=== PATIENT | male | born 1960 | race Caucasian/White ===

== ENCOUNTER 2020-01-30 07:03 | Outpatient (REF) | payer OTHER, SELFPAY ==
[2020-01-30 12:00] LABS: C Reactive Protein 0.16 mg/dL (< or = 0.50); Rheumatoid Factor < 15.0 IU/mL (<15.0)
[2020-01-30 12:04] LABS: Erythrocyte Sedimentation Rate 5 MM/HR (0-15)
[2020-02-01 11:52] LABS: Cyclic Citrullinated Peptide <16 UNITS
== END 2020-01-30 07:04 | disposition home or self-care (01) ==
LOC: HO.WFDLDS 07:03
PROVIDERS: Visit Provider Family Medicine
DX: M25.50 Pain in unspecified joint (principal)
CPT/HCPCS: 36415; 85652; 86140; 86200; 86431

== ENCOUNTER 2020-02-19 09:57 | Outpatient (REF) | payer OTHER, SELFPAY ==
[2020-02-19 12:26] LABS: Cholesterol 112 mg/dL; HDL Cholesterol 40 mg/dL; LDL Cholesterol Calculated 59 mg/dl; Triglycerides 67 mg/dL
== END 2020-02-19 09:58 | disposition home or self-care (01) ==
LOC: HO.WFDLDS 09:57
PROVIDERS: Visit Provider Family Medicine
DX: Z00.00 Encounter for general adult medical examination without abnormal findings (principal); E78.5 Hyperlipidemia, unspecified
CPT/HCPCS: 80061

== ENCOUNTER 2020-09-05 07:03 | Outpatient (REF) | payer OTHER, SELFPAY ==
[2020-09-05 10:48] LABS: Cholesterol 115 mg/dL; HDL Cholesterol 44 mg/dL; LDL Cholesterol Calculated 60 mg/dl; Triglycerides 58 mg/dL
== END 2020-09-05 07:04 | disposition home or self-care (01) ==
LOC: HO.WFDLDS 07:03
PROVIDERS: Visit Provider Family Medicine
DX: Z00.00 Encounter for general adult medical examination without abnormal findings (principal); E78.5 Hyperlipidemia, unspecified
CPT/HCPCS: 36415; 80061

== ENCOUNTER 2021-03-06 07:09 | Outpatient (REF) | payer OTHER, SELFPAY ==
[2021-03-06 11:15] LABS: Alanine Aminotransferase 21 U/L (0-40); Albumin Level 4.3 g/dL (3.5-5.0); Alkaline Phosphatase 80 U/L (39-117); Anion Gap 11 (12-20); Aspartate Amino Transferase 18 U/L (5-37); Bilirubin Total 1.1 mg/dL (0.0-1.0); Blood Urea Nitrogen 11 mg/dL (9-16); Calcium 9.4 mg/dL (8.4-10.2); Carbon Dioxide 27 mmol/L (22-29); Chloride 106 mmol/L (96-108); Cholesterol 130 mg/dL; Estimated Glomerular Filt Rate > 60; Glucose Fasting 106 mg/dL (60-99); HDL Cholesterol 42 mg/dL; Potassium 4.4 mmol/L (3.3-5.1); Sodium 140 mmol/L (135-145); Total Protein 6.7 g/dL (6.5-8.0)
[2021-03-06 11:17] LABS: LDL Cholesterol Calculated 68 mg/dl; Triglycerides 101 mg/dL
== END 2021-03-06 07:10 | disposition home or self-care (01) ==
LOC: HO.WFDLDS 07:09
PROVIDERS: Visit Provider Family Medicine
DX: Z00.00 Encounter for general adult medical examination without abnormal findings (principal)
CPT/HCPCS: 36415; 80053; 80061

== ENCOUNTER 2021-05-30 07:14 | Outpatient (REF) | payer OTHER, SELFPAY ==
[2021-05-30 11:40] LABS: MANUAL DIFF FLAG NO
[2021-05-30 11:42] LABS: Basophils Percent Auto 0.8 % (0-2); Eosinophils Absolute Auto 0.2 X10*3/uL (0.0-0.4); Eosinophils Percent Auto 3.7 % (0-4); Hematocrit 41.4 % (42.0-52.0); Hemoglobin 13.6 g/dl (14.0-18.0); Imm Gran Abs Auto 0.01 X10*3/uL (0.00-0.03); Imm Gran Pct Auto 0.2 % (0.0-0.4); Lymphocytes Absolute Auto 1.7 X10*3/uL (1.2-4.9); Lymphocytes Percent Auto 34.7 % (20-40); Mean Corpuscular HGB Conc 32.9 g/dl (31.0-36.0); Mean Corpuscular Hemoglobin 32.4 pg (27.0-33.0); Mean Corpuscular Volume 98.6 fL (80.0-98.0); Monocytes Absolute Auto 0.6 X10*3/uL (0.1-1.2); Monocytes Percent Auto 11.2 % (2-11); Neutrophils Absolute Auto 2.4 x10*3/uL (2.0-8.3); Neutrophils Percent Auto 49.4 % (45-73); Platelet Count 201 X10*3/uL (160-400); Red Cell Distribution Width 12.3 % (11.0-16.0); White Blood Count 4.9 X10*3/uL (4.8-10.8)
[2021-05-30 11:59] LABS: Estimated Average Glucose 105 mg/dL; Hemoglobin A1c % 5.3 %
[2021-05-30 12:10] LABS: Alanine Aminotransferase 23 U/L (0-40); Albumin Level 4.2 g/dL (3.5-5.0); Alkaline Phosphatase 80 U/L (39-117); Anion Gap 14 (12-20); Aspartate Amino Transferase 18 U/L (5-37); Bilirubin Total 1.3 mg/dL (0.0-1.0); Blood Urea Nitrogen 11 mg/dL (9-16); Calcium 9.5 mg/dL (8.4-10.2); Carbon Dioxide 28 mmol/L (22-29); Chloride 105 mmol/L (96-108); Estimated Glomerular Filt Rate > 60; Glucose Fasting 107 mg/dL (60-99); Iron 128 mcg/dL (45-160); Percent Iron Saturation 36 % (15-50); Potassium 4.5 mmol/L (3.3-5.1); Sodium 142 mmol/L (135-145); Total Iron Binding Capacity 355 mcg/dL (228-428); Total Protein 6.9 g/dL (6.5-8.0); Unsaturated Iron Binding 227 ug/dL
[2021-05-30 12:15] LABS: Prostate Specific Antigen Scr 0.15 ng/mL (<0.05-4.0); TSH reflex Free T4 1.94 uIU/mL (0.32-4.0)
[2021-06-06 22:06] LABS: Testosterone, Free 74.3 pg/mL (35.0-155.0); Testosterone, Total 630 ng/dL (250-1100)
== END 2021-05-30 07:15 | disposition home or self-care (01) ==
LOC: HO.WFDLDS 07:14
PROVIDERS: Visit Provider Family Medicine
DX: Z00.00 Encounter for general adult medical examination without abnormal findings (principal); N52.9 Male erectile dysfunction, unspecified; R73.01 Impaired fasting glucose; Z12.5 Encounter for screening for malignant neoplasm of prostate
CPT/HCPCS: 36415; 80053; 83036; 83540; 84153; 84402; 84403; 84443; 85025

== ENCOUNTER 2021-08-28 07:04 | Outpatient (REF) | payer OTHER, SELFPAY ==
[2021-08-28 11:33] LABS: MANUAL DIFF FLAG NO
[2021-08-28 11:49] LABS: Basophils Absolute Auto 0.1 X10*3/uL (0.0-0.2); Basophils Percent Auto 1.2 % (0-2); Eosinophils Absolute Auto 0.2 X10*3/uL (0.0-0.4); Eosinophils Percent Auto 3.7 % (0-4); Hematocrit 41.5 % (42.0-52.0); Hemoglobin 13.9 g/dl (14.0-18.0); Imm Gran Abs Auto 0.01 X10*3/uL (0.00-0.03); Imm Gran Pct Auto 0.2 % (0.0-0.4); Immature Retic Fraction 5.4 % (2.3-13.4); Lymphocytes Absolute Auto 1.5 X10*3/uL (1.2-4.9); Lymphocytes Percent Auto 34.2 % (20-40); Mean Corpuscular HGB Conc 33.5 g/dl (31.0-36.0); Mean Corpuscular Hemoglobin 32.5 pg (27.0-33.0); Mean Platelet Volume 11.9 fL (9.4-12.4); Monocytes Absolute Auto 0.5 X10*3/uL (0.1-1.2); Monocytes Percent Auto 11.5 % (2-11); Neutrophils Absolute Auto 2.1 x10*3/uL (2.0-8.3); Neutrophils Percent Auto 49.2 % (45-73); Platelet Count 207 X10*3/uL (160-400); Red Blood Count 4.28 X10*6/uL (4.60-5.80); Retic HGB Equivalent 36.8 pg (30.0-35.0); Reticulocyte Percent 1.1 % (0.5-1.8); Reticulocytes Absolute 0.049 X10*6/uL (0.026-0.095); White Blood Count 4.3 X10*3/uL (4.8-10.8)
[2021-08-28 12:57] LABS: Folate 12.3 ng/mL (> or = 4.0); Vitamin B12 159 pg/mL (200-900)
== END 2021-08-28 07:05 | disposition home or self-care (01) ==
LOC: HO.WFDLDS 07:04
PROVIDERS: PCP Family Medicine; Visit Provider Family Medicine
DX: D53.9 Nutritional anemia, unspecified (principal)
CPT/HCPCS: 36415; 82607; 82746; 85025; 85045

== ENCOUNTER 2021-10-17 08:39 | Outpatient (REF) | payer OTHER, SELFPAY ==
[2021-10-17 11:15] LABS: MANUAL DIFF FLAG NO
[2021-10-17 11:36] LABS: Basophils Percent Auto 0.8 % (0-2); Eosinophils Absolute Auto 0.1 X10*3/uL (0.0-0.4); Eosinophils Percent Auto 2.7 % (0-4); Hematocrit 39.1 % (42.0-52.0); Hemoglobin 13.6 g/dl (14.0-18.0); Imm Gran Abs Auto 0.01 X10*3/uL (0.00-0.03); Imm Gran Pct Auto 0.2 % (0.0-0.4); Lymphocytes Absolute Auto 1.6 X10*3/uL (1.2-4.9); Mean Corpuscular HGB Conc 34.8 g/dl (31.0-36.0); Mean Corpuscular Hemoglobin 32.8 pg (27.0-33.0); Mean Corpuscular Volume 94.2 fL (80.0-98.0); Mean Platelet Volume 11.9 fL (9.4-12.4); Monocytes Absolute Auto 0.4 X10*3/uL (0.1-1.2); Neutrophils Absolute Auto 2.5 x10*3/uL (2.0-8.3); Neutrophils Percent Auto 53.3 % (45-73); Platelet Count 206 X10*3/uL (160-400); Red Blood Count 4.15 X10*6/uL (4.60-5.80); Red Cell Distribution Width 11.9 % (11.0-16.0); White Blood Count 4.8 X10*3/uL (4.8-10.8)
[2021-10-17 11:39] LABS: Estimated Average Glucose 105 mg/dL; Hemoglobin A1c % 5.3 %
[2021-10-17 11:51] LABS: Cholesterol 131 mg/dL; HDL Cholesterol 41 mg/dL; LDL Cholesterol Calculated 78 mg/dl; Triglycerides 60 mg/dL
[2021-10-17 12:16] LABS: Folate 8.5 ng/mL (> or = 4.0); Vitamin B12 499 pg/mL (200-900)
== END 2021-10-17 08:40 | disposition home or self-care (01) ==
LOC: HO.WFDLDS 08:39
PROVIDERS: Visit Provider Family Medicine
DX: Z00.00 Encounter for general adult medical examination without abnormal findings (principal); D53.9 Nutritional anemia, unspecified; E78.5 Hyperlipidemia, unspecified; R73.01 Impaired fasting glucose; E53.8 Deficiency of other specified B group vitamins
CPT/HCPCS: 36415; 80061; 82607; 82746; 83036; 85025

== ENCOUNTER 2022-03-05 07:37 | Outpatient (REF) | payer OTHER, SELFPAY ==
[2022-03-05 11:23] LABS: MANUAL DIFF FLAG NO
[2022-03-05 11:41] LABS: Basophils Absolute Auto 0.1 X10*3/uL (0.0-0.2); Eosinophils Absolute Auto 0.2 X10*3/uL (0.0-0.4); Eosinophils Percent Auto 3.2 % (0-4); Hematocrit 43.8 % (42.0-52.0); Hemoglobin 14.3 g/dl (14.0-18.0); Imm Gran Abs Auto 0.01 X10*3/uL (0.00-0.03); Imm Gran Pct Auto 0.2 % (0.0-0.4); Lymphocytes Absolute Auto 1.9 X10*3/uL (1.2-4.9); Lymphocytes Percent Auto 31.6 % (20-40); Mean Corpuscular HGB Conc 32.6 g/dl (31.0-36.0); Mean Corpuscular Hemoglobin 31.1 pg (27.0-33.0); Mean Corpuscular Volume 95.2 fL (80.0-98.0); Mean Platelet Volume 11.3 fL (9.4-12.4); Monocytes Absolute Auto 0.6 X10*3/uL (0.1-1.2); Monocytes Percent Auto 9.3 % (2-11); Neutrophils Absolute Auto 3.3 x10*3/uL (2.0-8.3); Neutrophils Percent Auto 54.7 % (45-73); Platelet Count 223 X10*3/uL (160-400); Red Cell Distribution Width 11.9 % (11.0-16.0); White Blood Count 5.9 X10*3/uL (4.8-10.8)
== END 2022-03-05 07:38 | disposition home or self-care (01) ==
LOC: HO.WFDLDS 07:37
PROVIDERS: Visit Provider Family Medicine
DX: Z00.00 Encounter for general adult medical examination without abnormal findings (principal); D53.9 Nutritional anemia, unspecified
CPT/HCPCS: 36415; 85025

== ENCOUNTER 2022-05-29 07:24 | Outpatient (REF) | payer OTHER, SELFPAY ==
[2022-05-29 11:21] LABS: MANUAL DIFF FLAG NO
[2022-05-29 11:48] LABS: Appearance Urine Clear; Color Urine Yellow; Glucose Urine UA Negative (Negative); Leukocyte Esterase Urine Negative (Negative); Nitrite Urine Negative (Negative); PH 5.5 (5.0-9.0); Specific Gravity - Urine 1.015 (1.005-1.025); Urine Blood Negative (Negative); Urine Ketones Negative (Negative); Urine Protein Negative (Neg-Trace)
[2022-05-29 12:02] LABS: Basophils Absolute Auto 0.1 X10*3/uL (0.0-0.2); Basophils Percent Auto 1.1 % (0-2); Eosinophils Absolute Auto 0.2 X10*3/uL (0.0-0.4); Eosinophils Percent Auto 3.6 % (0-4); Hematocrit 44.6 % (42.0-52.0); Hemoglobin 14.7 g/dl (14.0-18.0); Imm Gran Abs Auto 0.01 X10*3/uL (0.00-0.03); Imm Gran Pct Auto 0.2 % (0.0-0.4); Lymphocytes Absolute Auto 1.8 X10*3/uL (1.2-4.9); Lymphocytes Percent Auto 32.2 % (20-40); Mean Corpuscular Hemoglobin 32.2 pg (27.0-33.0); Mean Corpuscular Volume 97.6 fL (80.0-98.0); Mean Platelet Volume 11.5 fL (9.4-12.4); Monocytes Absolute Auto 0.6 X10*3/uL (0.1-1.2); Monocytes Percent Auto 11.2 % (2-11); Neutrophils Absolute Auto 2.9 x10*3/uL (2.0-8.3); Neutrophils Percent Auto 51.7 % (45-73); Platelet Count 235 X10*3/uL (160-400); Red Blood Count 4.57 X10*6/uL (4.60-5.80); Red Cell Distribution Width 12.5 % (11.0-16.0); White Blood Count 5.5 X10*3/uL (4.8-10.8)
[2022-05-29 13:00] LABS: Alanine Aminotransferase 22 U/L (0-40); Albumin Level 4.2 g/dL (3.5-5.0); Alkaline Phosphatase 85 U/L (39-117); Anion Gap 12 (12-20); Aspartate Amino Transferase 19 U/L (5-37); Bilirubin Total 1.2 mg/dL (0.0-1.0); Blood Urea Nitrogen 10 mg/dL (9-16); Calcium 9.1 mg/dL (8.4-10.2); Carbon Dioxide 27 mmol/L (22-29); Chloride 107 mmol/L (96-108); Cholesterol 125 mg/dL; Estimated Glomerular Filt Rate > 60; Glucose Fasting 101 mg/dL (60-99); HDL Cholesterol 39 mg/dL; LDL Cholesterol Calculated 72 mg/dl; Potassium 4.4 mmol/L (3.3-5.1); Sodium 142 mmol/L (135-145); Total Protein 6.6 g/dL (6.5-8.0); Triglycerides 71 mg/dL
[2022-05-29 13:04] LABS: Creatinine Urine 78.05 mg/dL; Microalbum/Creatinine Ratio Ur 7.6 ug/mg cr
[2022-05-29 13:14] LABS: Prostate Specific Antigen Scr 0.18 ng/mL (<0.05-4.0); TSH reflex Free T4 1.48 uIU/mL (0.32-4.0); Vitamin B12 616 pg/mL (200-900)
== END 2022-05-29 07:25 | disposition home or self-care (01) ==
LOC: HO.WFDLDS 07:24
PROVIDERS: Visit Provider Family Medicine
DX: Z00.00 Encounter for general adult medical examination without abnormal findings (principal); E53.8 Deficiency of other specified B group vitamins; I10 Essential (primary) hypertension; Z12.5 Encounter for screening for malignant neoplasm of prostate
CPT/HCPCS: 36415; 80053; 80061; 81003; 82043; 82607; 82746; 84153; 84443; 85025

== ENCOUNTER 2022-06-11 07:08 | Outpatient (REF) | payer OTHER, SELFPAY ==
[2022-06-11 11:59] LABS: Anion Gap 11 (12-20); Blood Urea Nitrogen 17 mg/dL (9-16); Carbon Dioxide 25 mmol/L (22-29); Chloride 109 mmol/L (96-108); Estimated Glomerular Filt Rate > 60; Glucose Random 102 mg/dL (60-115); Potassium 4.3 mmol/L (3.3-5.1); Sodium 141 mmol/L (135-145)
[2022-06-17 21:14] LABS: Testosterone, Free 73.3 pg/mL (35.0-155.0); Testosterone, Total 516 ng/dL (250-1100)
== END 2022-06-11 07:09 | disposition home or self-care (01) ==
LOC: HO.WFDLDS 07:08
PROVIDERS: Visit Provider Family Medicine
DX: Z00.00 Encounter for general adult medical examination without abnormal findings (principal); N52.9 Male erectile dysfunction, unspecified
CPT/HCPCS: 36415; 80048; 84402; 84403

== ENCOUNTER 2022-09-04 07:01 | Outpatient (REF) | payer OTHER, SELFPAY | END 2022-09-04 07:02 | disposition home or self-care (01) | LOC: HO.WFDLDS 07:01 | PROVIDERS: Visit Provider Family Medicine | DX: Z00.00 Encounter for general adult medical examination without abnormal findings (principal); R73.01 Impaired fasting glucose; E78.5 Hyperlipidemia, unspecified | CPT/HCPCS: 36415; 80053; 80061; 83036 ==

== ENCOUNTER 2022-09-11 08:32 | Outpatient (AMB) | payer BC, SELFPAY ==
[2022-09-11 08:45] VITALS: BP 122/68; PULSE 61; RESP 15; TEMP 36.5; O2SAT 98; BMI 29.1
--- NOTE | 2022-09-11 08:45 | A.OFFPC_ITS ---
Vital Signs 09/11/22 08:45 Height 5 ft 2 in Weight 159 lb BMI 29.1 BP 122/68 Blood Pressure Location Rt brachial Position Sitting Respiration 15 Pulse 61 Pulse Source Pulse Oximeter Temp 97.7 F Temp Source Temporal Artery Scan Pulse Oximetry (%) 98 Oxygen Delivery Method Room Air Intake Visit Reasons: f/u elevated fasting glucose and hyperlipidemia Intake Note: Patient is here today to follow up with labs. Medical Staff Services Coordinator Required: No Accompanied by: Self / Same As Patient Allergies Seasonale Adverse Reaction (Severe, Uncoded 09/11/22 08:50) Watery Eye Medication List - Last Reconciled 09/11/22 by Best Clemons MD atorvastatin 10 mg PO DAILY 90 days coenzyme Q10 (CoQ-10) 100 mg PO DAILY mecobalamin (vitamin B12) 1,000 mcg sublingual DAILY 90 days Tobacco use date assessed: 09/11/22 Dental Screening Dental Screen Date: 09/11/22 Did you have a dental visit in the last 12 months?: Yes Did you have a dental problem in the last 6 months where you did not have access to dental care?: No Was dental information given to patient?: Patient has dentist HPI f/u elevated fasting glucose and hyperlipidemia HPI Details 62 y/o male presents to f/u elevated fasting glucose and hyperlipidemia. Labs were drawn 09/04/22. Reviewed labs with pt. A1c 5.3%. Triglycerides 95. TC 138. LDL 79. HDL 40. Pt had complaints of erectile dysfunction. He declines referral to Urology today. [facility] Surgical History No pertinent past surgical history Family History (Updated 09/11/22 @ 09:07 by Bharti Novak) Other Substance use disorder Social History Housing: House Patient Tobacco Use Status: Never used Tobacco e-Cigarette/Vaping Use: Never Used Second Hand Smoke Exposure: No service: No Current occupational status: employed Current occupation: Portable toilet cleaning Current occupational exposures/hazards: No Cognitive needs: No Hearing needs: No Vision needs: Yes Questionnaire PHQ-9 Over the last 2 weeks, how often have you been bothered by any of the following problems? 1. Little interest or pleasure in doing things: not at all 2. Feeling down, depressed, or hopeless: not at all 3. Trouble falling or staying asleep, or sleeping too much: not at all 4. Feeling tired or having little energy: not at all 5. Poor appetite or overeating: not at all 6. Feeling bad about yourself - or that you are a failure or have let yourself or your family down: not at all 7. Trouble concentrating on things, such as reading the newspaper or watching television: not at all 8. Moving or speaking so slowly that other people could have noticed. Or the opposite - being so fidgety or restless that you have been moving around a lot more than usual: not at all 9. Thoughts that you would be better off or of hurting yourself in some way: not at all Total score: 0 Depression Screening Interpretation: Negative 95902 - PHQ-9 Billing: Yes Source: Developed by Drs. Zay Chow, Shirley Chaidez, Octavio Sam and colleagues, with an educational alexandru from [employer] Thrive Questionnaire Date Thrive assessed: 09/11/22 I am a: Patient What is your living situation today?: I have a steady place to live Within the past 12 months, did the food you bought not last and you didn't have the money to get more?: Never true Within the past 12 months, did you worry whether your food would run out before you got money to buy more?: Never true Do you have trouble paying for medicines?: No Do you have trouble getting transportation to medical appointments?: No Do you have trouble paying your heating and electricity bill?: No Do you have trouble taking care of your child, family member or friend?: No Do you have trouble with day-to-day activities such as bathing, preparing meals, shopping, managing finances, etc.?: No Are you currently unemployed and looking for a job?: No Are you interested in more education?: No Currently or been in a relationship where the following occur: no concerns reported AUDIT C Alcohol Use Questionnaire (AUDIT-C) 1. How often do you have a drink containing alcohol?: Never 3. How often do you have six or more drinks on one occasion?: Never Total Score: 0 ROSIO-7 AMB Questionnaire ROSIO-7 Date ROSIO - 7 assessed: 09/11/22 Feeling nervous, anxious, or on edge: 0 = Not at all Not being able to stop or control worryin = Not at all Worrying too much about different things: 0 = Not at all Trouble relaxin = Not at all Being so restless that it is hard to sit still: 0 = Not at all Becoming easily annoyed or irritable: 0 = Not at all Feeling afraid as if something awful might happen: 0 = Not at all Total ROSIO-7 score (0-4 normal; 5-9 mild; 10-14 moderate; 15-21 severe): 0 Source: Developed by Drs. Zay Chow, Shirley Chaidez, Octavio Sam and colleagues, with an educational alexandru from [employer] ROSIO-7 Assessment Billing ROSIO-7 Assessment Tool: ROSIO-7 Assessment 59614 Review of Systems Const Denies chills, Denies fatigue, Denies fever(s), Denies headache(s) and Denies weakness ENT Denies dizziness and Denies headache(s) Card Denies chest pain, Denies lightheadedness, Denies dyspnea and Denies other (Palpitations) Resp Denies cough, Denies dyspnea, Denies wheezing and Denies other ( shortness of breath) Musc Denies numbness and Denies tingling Neuro Denies dizziness, Denies headache(s), Denies numbness, Denies tingling, Denies paresthesias and Denies weakness Psych Denies anxiety and Denies depression Endo Denies fatigue Aller/Immun Denies wheezing Physical exam (Primary Care) Vital Signs: Last Vital Signs Temp 97.7 F 09/11/22 08:45 Pulse 61 09/11/22 08:45 Resp 15 09/11/22 08:45 BP 122/68 09/11/22 08:45 Pulse Ox 98 09/11/22 08:45 Oxygen Delivery Method Room Air 09/11/22 08:45 BMI result Body Mass Index 29.1 Tobacco/Smoking Status: Tobacco use Status Tobacco use date assessed 09/11/22 09/11/22 08:52 Patient Tobacco Use Status Never used Tobacco 09/11/22 08:52 e-Cigarette/Vaping Use Never Used 09/11/22 08:52 PHQ-9: PHQ-9 Score PHQ-9: Total score 0 09/11/22 09:12 Depression Screening Interpretation: Negative Thrive Assessment: Date of Thrive Assessment Date Thrive assessed 09/11/22 09/11/22 09:01 Currently or been in a relationship where the following occur: no concerns reported Const General: no acute distress and well developed Nutritional Appearance: well nourished Orientation/consciousness: patient oriented x3 HENMT Head: Yes normocephalic and Yes atraumatic Eyes General: appearance normal, both eyes and all related structures Pupils: Equal, round and reactive pupils present EOM: EOMs intact bilaterally Resp Effort & Inspection: normal respiratory effort Auscultation: clear to auscultation bilaterally Cardio Rate: regular rate Rhythm: regular rhythm Heart sounds: S1 normal heart sound present, S2 normal heart sound present, no gallops, no murmurs and no rubs Neuro General: patient oriented x3 and gait normal Cranial nerves: Yes Equal, round and reactive pupils present Psych Affect: normal affect Assessment and Plan Assessment & Plan (1) Elevated fasting glucose: Code(s): R73.01 - Impaired fasting glucose Plan: A1c steady at 5.3%. He has some insulin resistance Encouraged a diet lower in sugars and starches (2) Hyperlipidemia: Code(s): E78.5 - Hyperlipidemia, unspecified Plan: Lipids are controlled with atorvastatin. HDL was mildly low previously but now within normal limits. Encouraged additional exercise (3) Strain of left biceps tendon: Code(s): S46.212A - Strain of muscle, fascia and tendon of other parts of biceps, left arm, initial encounter Plan: Mild discomfort at left biceps tendon. He can use ice heat and NSAIDs He will let me know if this worsens and would refer him for physical therapy (4) Erectile dysfunction: Code(s): N52.9 - Male erectile dysfunction, unspecified Plan: Testosterone levels within normal limits Offered referral to urology or trial of medications but patient declines for now. He will let me know if he would like to readdress this issue Orders: Orders Vitamin B12 and Folate Today D53.9 - Nutritional anemia, unspecified, E53.8 - Deficiency of other specified B group vitamins Comprehensive [place]. Panel Fast Today Z00.00 - Encounter for general adult medical examination without abnormal findings IRON PROFILE Today D53.9 - Nutritional anemia, unspecified Lipid Panel Today Z00.00 - Encounter for general adult medical examination without abnormal findings Prostate Specific Antigen Scr Today Z12.5 - Encounter for screening for malignant neoplasm of prostate TSH reflex Free T4 Today Z00.00 - Encounter for general adult medical examination without abnormal findings Microalbumin, Random (w Creat) Today I10 - Essential (primary) hypertension Complete Blood Count Auto Diff Today Z00.00 - Encounter for general adult medical examination without abnormal findings UA and rflx microscopic Today Z00.00 - Encounter for general adult medical examination without abnormal findings Coding Level of Care Code Est Pt Level 4 (15615) Diagnoses Elevated fasting glucose R73.01 Hyperlipidemia E78.5 Strain of left biceps tendon S46.212A Erectile dysfunction N52.9 Additional Codes ROSIO-7 Assessment Billing - ROSIO-7 Assessment Tool: ROSIO-7 Assessment 43867 ([id number])
== END 2022-09-11 09:28 | disposition home or self-care (01) ==
PROVIDERS: Visit Provider Family Medicine
DX: R73.01 Impaired fasting glucose (principal); E78.5 Hyperlipidemia, unspecified; S46.212A Strain of muscle, fascia and tendon of other parts of biceps, left arm, initial encounter; N52.9 Male erectile dysfunction, unspecified
CPT/HCPCS: 99214

== ENCOUNTER 2023-07-29 10:02 | Outpatient (REF) | payer OTHER, SELFPAY ==
[2023-07-29 11:22] LABS: MANUAL DIFF FLAG NO
[2023-07-29 11:30] LABS: Basophils Absolute Auto 0.1 X10*3/uL (0.0-0.2); Basophils Percent Auto 0.9 % (0-2); Eosinophils Absolute Auto 0.3 X10*3/uL (0.0-0.4); Hematocrit 43.1 % (42.0-52.0); Imm Gran Abs Auto 0.02 X10*3/uL (0.00-0.03); Imm Gran Pct Auto 0.3 % (0.0-0.4); Lymphocytes Percent Auto 29.1 % (20-40); Mean Corpuscular HGB Conc 34.8 g/dl (31.0-36.0); Mean Corpuscular Hemoglobin 32.3 pg (27.0-33.0); Mean Corpuscular Volume 92.9 fL (80.0-98.0); Mean Platelet Volume 11.3 fL (9.4-12.4); Monocytes Absolute Auto 0.6 X10*3/uL (0.1-1.2); Monocytes Percent Auto 9.3 % (2-11); Neutrophils Absolute Auto 3.8 x10*3/uL (2.0-8.3); Neutrophils Percent Auto 56.4 % (45-73); Platelet Count 217 X10*3/uL (160-400); Red Blood Count 4.64 X10*6/uL (4.60-5.80); Red Cell Distribution Width 12.5 % (11.0-16.0); White Blood Count 6.7 X10*3/uL (4.8-10.8)
[2023-07-29 11:43] LABS: Appearance Urine Clear; Color Urine Yellow; Glucose Urine UA Negative (Negative); Leukocyte Esterase Urine Negative (Negative); Nitrite Urine Negative (Negative); Specific Gravity - Urine 1.015 (1.005-1.025); Urine Blood Negative (Negative); Urine Ketones Negative (Negative); Urine Protein Negative (Neg-Trace)
[2023-07-29 12:24] LABS: Alanine Aminotransferase 39 U/L (0-40); Albumin Level 4.2 g/dL (3.5-5.0); Alkaline Phosphatase 86 U/L (39-117); Anion Gap 16 (12-20); Aspartate Amino Transferase 25 U/L (5-37); Blood Urea Nitrogen 11 mg/dL (9-16); Calcium 9.4 mg/dL (8.4-10.2); Carbon Dioxide 23 mmol/L (22-29); Chloride 106 mmol/L (96-108); Cholesterol 144 mg/dL (<200); Estimated Glomerular Filt Rate > 60; Glucose Fasting 96 mg/dL (60-99); HDL Cholesterol 39 mg/dL (>40); Iron 96 mcg/dL (45-160); LDL Cholesterol Calculated 72 mg/dL (<100); Percent Iron Saturation 33 % (15-50); Sodium 141 mmol/L (135-145); Total Iron Binding Capacity 292 mcg/dL (228-428); Total Protein 7.1 g/dL (6.5-8.0); Triglycerides 169 mg/dL (<150); Unsaturated Iron Binding 196 ug/dL
[2023-07-29 12:41] LABS: TSH reflex Free T4 1.33 uIU/mL (0.32-4.0)
[2023-07-29 12:44] LABS: Folate 4.1 ng/mL (> or = 4.0); Prostate Specific Antigen Scr 0.27 ng/mL (<0.05-4.0); Vitamin B12 1201 pg/mL (200-900)
[2023-07-29 12:46] LABS: Creatinine Urine 173.51 mg/dL; Microalbum/Creatinine Ratio Ur 6.9 ug/mg cr (<30)
== END 2023-07-29 10:03 | disposition home or self-care (01) ==
LOC: HO.WFDLDS 10:02
PROVIDERS: Visit Provider Family Medicine
DX: Z00.00 Encounter for general adult medical examination without abnormal findings (principal); Z12.5 Encounter for screening for malignant neoplasm of prostate; E53.8 Deficiency of other specified B group vitamins; D53.9 Nutritional anemia, unspecified; I10 Essential (primary) hypertension
CPT/HCPCS: 36415; 80053; 80061; 81003; 82043; 82570; 82607; 82746; 83540; 84153; 84443; 85025

== ENCOUNTER 2023-08-02 13:35 | Outpatient (AMB) | payer OTHER, SELFPAY ==
--- NOTE | 2023-08-02 13:42 | A.OFFPC_ITS ---
Vital Signs 08/02/23 13:44 Height 5 ft 2 in Weight 168 lb 2 oz BMI 30.7 BP 124/66 Blood Pressure Location Lt brachial Position Sitting Pulse 86 Pulse Source Pulse Oximeter Pulse Oximetry (%) 96 Oxygen Delivery Method Room Air Intake Visit Reasons: CPE with f/u labs and health maintenance Intake Note: Patient is here for physical today. Allergies Seasonale Adverse Reaction (Severe, Uncoded 08/02/23 13:49) Watery Eye Tobacco use date assessed: 08/02/23 Fall risk assessment: No Falls in past year Last assessed Fall Risk: 08/02/23 Dental Screening Dental Screen Date: 08/02/23 Did you have a dental visit in the last 12 months?: Yes Did you have a dental problem in the last 6 months where you did not have access to dental care?: No Was dental information given to patient?: Patient has dentist HPI CPE with f/u labs and health maintenance HPI Details 63 y/o male presents for a CPE with f/u labs and health maintenance. Labs were drawn 07/29/23. Reviewed labs with pt. Triglycerides 169. TC 144. LDL 72. HDL low at 39. He is on artovastatin 10mg daily. Has not had a colonoscopy yet. Last cologuard test was in May, which was negative. HPI Comments History of Present Illness Details Documentation assistance for Best Clemons MD, was provided by Anatoliy Guerrero, Air Valve Repairer on 08/02/2023 at 2:21 PM EST. I, Dr. Clemons, have read, observed, and verified documentation. [facility] Surgical History No pertinent past surgical history Family History Other Substance use disorder Social History Housing: House Patient Tobacco Use Status: Never used Tobacco e-Cigarette/Vaping Use: Never Used Second Hand Smoke Exposure: No service: No Current occupational status: employed Current occupation: Portable toilet cleaning Current occupational exposures/hazards: No Cognitive needs: No Hearing needs: No Vision needs: Yes Questionnaire PHQ-9 Over the last 2 weeks, how often have you been bothered by any of the following problems? 1. Little interest or pleasure in doing things: not at all 2. Feeling down, depressed, or hopeless: not at all 3. Trouble falling or staying asleep, or sleeping too much: not at all 4. Feeling tired or having little energy: not at all 5. Poor appetite or overeating: not at all 6. Feeling bad about yourself - or that you are a failure or have let yourself or your family down: not at all 7. Trouble concentrating on things, such as reading the newspaper or watching television: not at all 8. Moving or speaking so slowly that other people could have noticed. Or the opposite - being so fidgety or restless that you have been moving around a lot more than usual: not at all 9. Thoughts that you would be better off or of hurting yourself in some way: not at all Total score: 0 Depression Screening Interpretation: Negative Depression Screening Done: Yes 75709 - PHQ-9 Billing: Yes Source: Developed by Drs. Zay Chow, Shirley Chaidez, Octavio Sam and colleagues, with an educational alexandru from [employer]. Thrive Questionnaire Date Thrive assessed: 08/02/23 I am a: Patient What is your living situation today?: I have a steady place to live Within the past 12 months, did the food you bought not last and you didn't have the money to get more?: Never true Within the past 12 months, did you worry whether your food would run out before you got money to buy more?: Never true Do you have trouble paying for medicines?: No Do you have trouble getting transportation to medical appointments?: No Do you have trouble paying your heating and electricity bill?: No Do you have trouble taking care of your child, family member or friend?: No Do you have trouble with day-to-day activities such as bathing, preparing meals, shopping, managing finances, etc.?: No Are you currently unemployed and looking for a job?: No Are you interested in more education?: No THRIVE Score: 0 AUDIT C Alcohol Use Questionnaire (AUDIT-C) 1. How often do you have a drink containing alcohol?: Never 3. How often do you have six or more drinks on one occasion?: Never Total Score: 0 ROSIO-7 AMB Questionnaire ROSIO-7 Date ROSIO - 7 assessed: 09/11/22 Source: Developed by Drs. Zay Chow, Shirley Chaidez, Octavio Sam and colleagues, with an educational alexandru from [employer]. Review of Systems Const Denies chills, Denies fatigue, Denies fever(s), Denies headache(s) and Denies weakness Eyes Denies change in vision ENT Denies dizziness, Denies headache(s), Denies hearing loss, Denies nasal congestion, Denies sinus pain, Denies sinus pressure and Denies sore throat Card Denies chest pain, Denies lightheadedness, Denies dyspnea and Denies other (palpitations) Resp Denies cough, Denies dyspnea and Denies wheezing GI Denies abdominal pain, Denies melena, Denies hematochezia, Denies change in bowel habits, Denies dyspepsia and Denies nausea Denies hematuria and Denies dysuria Musc Denies abnormal gait, Denies myalgias, Denies arthralgias, Denies numbness and Denies tingling Skin/Breast Denies rash, Denies unusual bruising and Denies wounds Neuro Denies abnormal gait, Denies dizziness, Denies headache(s), Denies memory loss, Denies numbness, Denies Sensory deficit (Neuro), Denies tingling and Denies weakness Psych Denies anxiety, Denies depression and Denies memory loss Endo Denies cold intolerance, Denies fatigue, Denies heat intolerance, Denies polydipsia and Denies polyuria Juan Alberto/Lymph Denies easy bleeding and Denies easy bruising Aller/Immun Denies wheezing Physical exam (Primary Care) Vital Signs: Last Vital Signs Pulse 86 08/02/23 13:44 BP 124/66 08/02/23 13:44 Pulse Ox 96 08/02/23 13:44 Oxygen Delivery Method Room Air 08/02/23 13:44 BMI result Body Mass Index 30.7 Tobacco/Smoking Status: Tobacco use Status Tobacco use date assessed 08/02/23 08/02/23 13:48 Patient Tobacco Use Status Never used Tobacco 08/02/23 13:42 e-Cigarette/Vaping Use Never Used 08/02/23 13:42 PHQ-9: PHQ-9 Score PHQ-9: Total score 0 08/02/23 14:19 Depression Screening Interpretation: Negative Thrive Assessment: Date of Thrive Assessment Date Thrive assessed 08/02/23 08/02/23 13:48 Const General: no acute distress, well developed, alert and awake Nutritional Appearance: well nourished Orientation/consciousness: patient oriented x3 HENMT Head: Yes normocephalic and Yes atraumatic Ears: hearing grossly normal bilaterally and TM's normal bilaterally General nose exam: Normal external nose present and Normal nares present Mouth: Normal oral and palatal mucosa present and moist mucous membranes Teeth and gingiva: dentition normal Throat: Yes posterior oropharynx normal Eyes General: appearance normal, both eyes and all related structures Pupils: Equal, round and reactive pupils present and Pupil accommodation reflex normal EOM: EOMs intact bilaterally Neck Neck: Yes normal visual inspection, Yes no lymphadenopathy and Yes trachea midline Thyroid: Thyroid normal Carotids: no bruits Lymphatic: no lymphadenopathy noted Chest Chest palpation & inspection: normal inspection of the chest Resp Effort & Inspection: normal respiratory effort Auscultation: clear to auscultation bilaterally Cardio Rate: regular rate Rhythm: regular rhythm Heart sounds: S1 normal heart sound present, S2 normal heart sound present, no gallops, no murmurs and no rubs Bruits: no abdominal aortic bruits and no carotid bruits GI Palpation (GI): No Abdominal aortic bruit present, Soft to palpation, nontender, No hepatosplenomegaly present and No Rebound tenderness present Auscultation: normal bowel sounds General: Yes no CVA tenderness Back/Spine/Pelvis Back: no CVA tenderness Cervical Spine: cervical ROM normal and No Cervical spine tenderness Thoracic/Lumbar Spine: thoraco-lumbar ROM normal, No pain with thoraco-lumbar ROM, No thoracic spinal tenderness and No lumbar spinal tenderness Skin Lesions: no lesions Rashes: no rashes Trauma: no lacerations or abrasions Wounds: no wounds Nails: normal Neuro General: patient oriented x3 Cranial nerves: Yes Equal, round and reactive pupils present Cognition (Neuro): normal cognition Gait exam (Neuro): Normal gait present Motor exam (neuro): 5/5 motor strength present throughout Sensory Exam: No Sensory deficit (Neuro) Deep tendon reflexes (DTR's): Right patellar reflex intensity grade: 2+ and Left patellar reflex intensity grade: 2+ Extrem General: Yes normal to inspection and No edema Psych Appearance: grossly normal Affect: normal affect Attitude: cooperative Thought process: Normal thought process present Assessment and Plan Assessment & Plan (1) Adult general medical exam: Code(s): Z00.00 - Encounter for general adult medical examination without abnormal findings Plan: 63-year-old?male?presents?for?complete?physical?exam Encouraged?healthy?diet?with?active?lifestyle?and?plenty?of?exercise (2) Hyperlipidemia: Code(s): E78.5 - Hyperlipidemia, unspecified Plan: Mildly?elevated?triglycerides?and?mildly?low?HDL Encouraged?exercise?and?weight?loss (3) Macrocytic anemia: Code(s): D53.9 - Nutritional anemia, unspecified Plan: This?has?resolved?with?B12?supplementation Continue?B12 (4) Low HDL (under 40): Code(s): E78.6 - Lipoprotein deficiency Plan: As?above,?encouraged?exercise (5) Screening for colon cancer: Code(s): Z12.11 - Encounter for screening for malignant neoplasm of colon Plan: Colonoscopy?in?06/18/2021 Negative?and?he?is?up-to-date Will?repeat?in?spring?of?2024 (6) Screening for prostate cancer: Code(s): Z12.5 - Encounter for screening for malignant neoplasm of prostate Plan: PSA?is?within?normal?range Orders: Orders Complete Blood Count Auto Diff Today Z00.00 - Encounter for general adult medical examination without abnormal findings UA and rflx microscopic Today Z00.00 - Encounter for general adult medical examination without abnormal findings Comprehensive [place]. Panel Fast Today Z00.00 - Encounter for general adult medical examination without abnormal findings Lipid Panel Today Z00.00 - Encounter for general adult medical examination without abnormal findings Microalbumin, Random (w Creat) Today I10 - Essential (primary) hypertension Prostate Specific Antigen Scr Today Z12.5 - Encounter for screening for malignant neoplasm of prostate TSH reflex Free T4 Today Z00.00 - Encounter for general adult medical examination without abnormal findings Vitamin B12 and Folate Today E53.8 - Deficiency of other specified B group vitamins Coding Level of Care Code Est Pt Level 3 (88043) Est Pt Prev Care 40-64y(81406) Diagnoses Adult general medical exam Z00.00 Hyperlipidemia E78.5 Macrocytic anemia D53.9 Low HDL (under 40) E78.6 Screening for colon cancer Z12.11 Screening for prostate cancer Z12.5
[2023-08-02 13:44] VITALS: BP 124/66; PULSE 86; O2SAT 96; BMI 30.7
== END 2023-08-02 14:39 | disposition home or self-care (01) ==
PROVIDERS: PCP Family Medicine; Visit Provider Family Medicine
DX: Z00.00 Encounter for general adult medical examination without abnormal findings (principal); E78.5 Hyperlipidemia, unspecified; D53.9 Nutritional anemia, unspecified; E78.6 Lipoprotein deficiency; Z12.11 Encounter for screening for malignant neoplasm of colon; Z12.5 Encounter for screening for malignant neoplasm of prostate
CPT/HCPCS: 99396

== ENCOUNTER 2024-07-31 08:39 | Outpatient (REF) | payer MEDICARE, SELFPAY ==
[2024-07-31 11:23] LABS: MANUAL DIFF FLAG NO
[2024-07-31 11:34] LABS: Appearance Urine Clear; Color Urine Yellow; Glucose Urine UA Negative (Negative); Leukocyte Esterase Urine Negative (Negative); Nitrite Urine Negative (Negative); Specific Gravity - Urine 1.015 (1.005-1.025); Urine Blood Negative (Negative); Urine Ketones Negative (Negative); Urine Protein Negative (Neg-Trace)
[2024-07-31 11:40] LABS: Basophils Absolute Auto 0.1 X10*3/uL (0.0-0.2); Basophils Percent Auto 1.1 % (0-2); Eosinophils Absolute Auto 0.3 X10*3/uL (0.0-0.4); Eosinophils Percent Auto 3.6 % (0-4); Hemoglobin 14.4 g/dl (14.0-18.0); Imm Gran Abs Auto 0.01 X10*3/uL (0.00-0.03); Imm Gran Pct Auto 0.1 % (0.0-0.4); Lymphocytes Absolute Auto 2.1 X10*3/uL (1.2-4.9); Lymphocytes Percent Auto 28.2 % (20-40); Mean Corpuscular HGB Conc 33.5 g/dl (31.0-36.0); Mean Corpuscular Hemoglobin 31.8 pg (27.0-33.0); Mean Corpuscular Volume 94.9 fL (80.0-98.0); Mean Platelet Volume 11.5 fL (9.4-12.4); Monocytes Absolute Auto 0.7 X10*3/uL (0.1-1.2); Monocytes Percent Auto 9.5 % (2-11); Neutrophils Absolute Auto 4.3 x10*3/uL (2.0-8.3); Neutrophils Percent Auto 57.5 % (45-73); Platelet Count 238 X10*3/uL (160-400); Red Blood Count 4.53 X10*6/uL (4.60-5.80); Red Cell Distribution Width 12.5 % (11.0-16.0); White Blood Count 7.5 X10*3/uL (4.8-10.8)
[2024-07-31 12:05] LABS: Creatinine Urine 151.15 mg/dL; Microalbum/Creatinine Ratio Ur 7.9 ug/mg cr (<30)
[2024-07-31 12:09] LABS: Alanine Aminotransferase 45 U/L (0-40); Albumin Level 4.4 g/dL (3.5-5.0); Alkaline Phosphatase 97 U/L (39-117); Anion Gap 12 (12-20); Aspartate Amino Transferase 33 U/L (5-37); Bilirubin Total 0.6 mg/dL (0.0-1.0); Blood Urea Nitrogen 13 mg/dL (9-16); Calcium 9.5 mg/dL (8.4-10.2); Carbon Dioxide 22 mmol/L (22-29); Chloride 109 mmol/L (96-108); Cholesterol 131 mg/dL (<200); Estimated Glomerular Filt Rate > 60; Glucose Fasting 111 mg/dL (60-99); HDL Cholesterol 30 mg/dL (>40); LDL Cholesterol Calculated 69 mg/dL (<100); Potassium 3.9 mmol/L (3.3-5.1); Sodium 139 mmol/L (135-145); Total Protein 7.1 g/dL (6.5-8.0); Triglycerides 161 mg/dL (<150)
[2024-07-31 12:10] LABS: TSH reflex Free T4 1.86 uIU/mL (0.32-4.0)
[2024-07-31 12:28] LABS: Folate 5.7 ng/mL (> or = 4.0); Prostate Specific Antigen Scr 0.19 ng/mL (<0.05-4.0); Vitamin B12 450 pg/mL (200-900)
== END 2024-07-31 08:40 | disposition home or self-care (01) ==
LOC: HO.WFDLDS 08:39
PROVIDERS: Visit Provider Family Medicine
DX: Z00.00 Encounter for general adult medical examination without abnormal findings (principal); I10 Essential (primary) hypertension; Z12.5 Encounter for screening for malignant neoplasm of prostate; E53.8 Deficiency of other specified B group vitamins
CPT/HCPCS: 36415; 80053; 80061; 81003; 82043; 82570; 82607; 82746; 84153; 84443; 85025

== ENCOUNTER 2024-08-03 08:47 | Outpatient (AMB) | payer MEDICARE, SELFPAY ==
--- NOTE | 2024-08-03 08:55 | A.OFFPC_ITS ---
Vital Signs 08/03/24 09:00 Height 5 ft 2 in Weight 173 lb 6 oz BMI 31.7 BP 110/70 Blood Pressure Location Rt brachial Position Sitting Respiration 14 Pulse 95 Pulse Source Pulse Oximeter Temp 98.0 F Temp Source Oral Pulse Oximetry (%) 71 L Oxygen Delivery Method Room Air Intake Visit Reasons: CPE with f/u labs and health maint. 30 mins Intake Note: patient is scheduled for cpe Claims Adjudicator Required: No Allergies Seasonale Adverse Reaction (Severe, Uncoded 08/02/23 13:49) Watery Eye Medication List - Last Reconciled 08/03/24 by Best Clemons MD atorvastatin 10 mg PO DAILY 90 days coenzyme Q10 (CoQ-10) 100 mg PO DAILY mecobalamin (vitamin B12) 1,000 mcg sublingual DAILY 90 days Tobacco use date assessed: 08/03/24 Fall risk assessment: No Falls in past year Last assessed Fall Risk: 08/03/24 Dental Screening Dental Screen Date: 08/03/24 Did you have a dental visit in the last 12 months?: Yes Did you have a dental problem in the last 6 months where you did not have access to dental care?: No Was dental information given to patient?: Patient has dentist HPI CPE with f/u labs and health maint. 30 mins HPI Details 64 y/o male presents for an extended exa m with f/u labs and health maintenance. Labs drawn 07/31/24. Reviewed labs with pt. Elevated fasting glucose of 111. Elevated ALT of 45. Triglycerides 161. TC 131. LDL 69. HDL low at 30. Pt reports ringing in both ears. Has complaints of breast pain around the L side since March. [facility], [facility] Surgical History No pertinent past surgical history Family History Other Substance use disorder Social History Housing: House Patient Tobacco Use Status: Never used Tobacco e-Cigarette/Vaping Use: Never Used Second Hand Smoke Exposure: No service: No Current occupational status: employed Current occupation: Portable toilet cleaning Current occupational exposures/hazards: No Cognitive needs: No Hearing needs: No Vision needs: Yes Questionnaire PHQ-9 Over the last 2 weeks, how often have you been bothered by any of the following problems? 1. Little interest or pleasure in doing things: not at all 2. Feeling down, depressed, or hopeless: not at all 3. Trouble falling or staying asleep, or sleeping too much: not at all 4. Feeling tired or having little energy: not at all 5. Poor appetite or overeating: not at all 6. Feeling bad about yourself - or that you are a failure or have let yourself or your family down: not at all 7. Trouble concentrating on things, such as reading the newspaper or watching television: not at all 8. Moving or speaking so slowly that other people could have noticed. Or the opposite - being so fidgety or restless that you have been moving around a lot more than usual: not at all 9. Thoughts that you would be better off or of hurting yourself in some way: not at all Total score: 0 Depression Screening Interpretation: Negative Depression Screening Done: Yes 14470 - PHQ-9 Billing: Yes Source: Developed by Drs. Zay Chow, Shirley Chaidez, Octavio Sam and colleagues, with an educational alexandru from [employer]. Thrive Questionnaire Date Thrive assessed: 08/03/24 I am a: Patient What is your living situation today?: I have a steady place to live Within the past 12 months, did the food you bought not last and you didn't have the money to get more?: Never true Within the past 12 months, did you worry whether your food would run out before you got money to buy more?: Never true Do you have trouble paying for medicines?: No Do you have trouble getting transportation to medical appointments?: No Do you have trouble paying your heating and electricity bill?: No Do you have trouble taking care of your child, family member or friend?: No Do you have trouble with day-to-day activities such as bathing, preparing meals, shopping, managing finances, etc.?: No Are you currently unemployed and looking for a job?: No Are you interested in more education?: No Please select the resources that you would like help with: None Currently or been in a relationship where the following occur: No concerns reported THRIVE Score: 0 AUDIT C Alcohol Use Questionnaire (AUDIT-C) 1. How often do you have a drink containing alcohol?: Never 3. How often do you have six or more drinks on one occasion?: Never Total Score: 0 Score Reviewed/Action Taken: Yes ROSIO-7 AMB Questionnaire ROSIO-7 Date ROSIO - 7 assessed: 08/03/24 Feeling nervous, anxious, or on edge: 0 = Not at all Not being able to stop or control worryin = Not at all Worrying too much about different things: 0 = Not at all Trouble relaxin = Not at all Being so restless that it is hard to sit still: 0 = Not at all Becoming easily annoyed or irritable: 0 = Not at all Feeling afraid as if something awful might happen: 0 = Not at all Total ROSIO-7 score (0-4 normal; 5-9 mild; 10-14 moderate; 15-21 severe): 0 Source: Developed by Drs. Zay Chow, Shirley Chaidez, Octavio Sam and colleagues, with an educational alexandru from [employer]. ROSIO-7 Assessment Billing ROSIO-7 Assessment Tool: ROSIO-7 Assessment 56677 Review of Systems Const Denies chills, Denies fatigue, Denies fever(s), Denies headache(s) and Denies weakness Eyes Denies change in vision ENT Denies dizziness, Denies headache(s), Denies hearing loss, Denies nasal congestion, Denies sinus pain, Denies sinus pressure and Denies sore throat Card Denies chest pain, Denies lightheadedness, Denies dyspnea and Denies other (palpitations) Resp Denies cough, Denies dyspnea and Denies wheezing GI Denies abdominal pain, Denies melena, Denies hematochezia, Denies change in bowel habits, Denies dyspepsia and Denies nausea Denies hematuria and Denies dysuria Musc Denies abnormal gait, Denies myalgias, Denies arthralgias, Denies numbness and Denies tingling Skin/Breast Denies rash, Denies unusual bruising and Denies wounds Neuro Denies abnormal gait, Denies dizziness, Denies headache(s), Denies memory loss, Denies numbness, Denies Sensory deficit (Neuro), Denies tingling and Denies weakness Psych Denies anxiety, Denies depression and Denies memory loss Endo Denies cold intolerance, Denies fatigue, Denies heat intolerance, Denies polydipsia and Denies polyuria Juan Alberto/Lymph Denies easy bleeding and Denies easy bruising Aller/Immun Denies wheezing Physical exam (Primary Care) Vital Signs: Last Vital Signs Temp 98.0 F 08/03/24 09:00 Pulse 95 08/03/24 09:00 Resp 14 08/03/24 09:00 BP 110/70 08/03/24 09:00 Pulse Ox 71 L 08/03/24 09:00 Oxygen Delivery Method Room Air 08/03/24 09:00 BMI result Body Mass Index 31.7 Tobacco/Smoking Status: Tobacco use Status Tobacco use date assessed 08/03/24 08/03/24 09:02 Patient Tobacco Use Status Never used Tobacco 08/03/24 08:56 e-Cigarette/Vaping Use Never Used 08/03/24 08:56 PHQ-9: PHQ-9 Score PHQ-9: Total score 0 08/03/24 09:14 Depression Screening Interpretation: Negative Thrive Assessment: Date of Thrive Assessment Date Thrive assessed 08/03/24 08/03/24 09:02 Currently or been in a relationship where the following occur: No concerns reported Const General: no acute distress, well developed, alert and awake Nutritional Appearance: well nourished Orientation/consciousness: patient oriented x3 HENMT Head: Yes normocephalic and Yes atraumatic Ears: hearing grossly normal bilaterally and TM's normal bilaterally General nose exam: Normal external nose present and Normal nares present Mouth: Normal oral and palatal mucosa present and moist mucous membranes Teeth and gingiva: dentition normal Throat: Yes posterior oropharynx normal Eyes General: appearance normal, both eyes and all related structures Pupils: Equal, round and reactive pupils present and Pupil accommodation reflex normal EOM: EOMs intact bilaterally Neck Neck: Yes normal visual inspection, Yes no lymphadenopathy and Yes trachea midline Thyroid: Thyroid normal Carotids: no bruits Lymphatic: no lymphadenopathy noted Chest Chest palpation & inspection: normal inspection of the chest Resp Effort & Inspection: normal respiratory effort Auscultation: clear to auscultation bilaterally Cardio Rate: regular rate Rhythm: regular rhythm Heart sounds: S1 normal heart sound present, S2 normal heart sound present, no gallops, no murmurs and no rubs Bruits: no abdominal aortic bruits and no carotid bruits GI Palpation (GI): No Abdominal aortic bruit present, Soft to palpation, nontender, No hepatosplenomegaly present and No Rebound tenderness present Auscultation: normal bowel sounds General: Yes no CVA tenderness Back/Spine/Pelvis Back: no CVA tenderness Cervical Spine: cervical ROM normal and No Cervical spine tenderness Thoracic/Lumbar Spine: thoraco-lumbar ROM normal, No pain with thoraco-lumbar ROM, No thoracic spinal tenderness and No lumbar spinal tenderness Skin Lesions: no lesions Rashes: no rashes Trauma: no lacerations or abrasions Wounds: no wounds Nails: normal Neuro General: patient oriented x3 Cranial nerves: Yes Equal, round and reactive pupils present Cognition (Neuro): normal cognition Gait exam (Neuro): Normal gait present Motor exam (neuro): 5/5 motor strength present throughout Sensory Exam: No Sensory deficit (Neuro) Deep tendon reflexes (DTR's): Right patellar reflex intensity grade: 2+ and Left patellar reflex intensity grade: 2+ Extrem General: Yes normal to inspection and No edema Psych Appearance: grossly normal Affect: normal affect Attitude: cooperative Thought process: Normal thought process present Coding Level of Care Code Est Pt Level 4 (06072) Diagnoses Elevated fasting glucose R73.01 Hyperlipidemia E78.5 Elevated liver enzymes R74.8 Screening for prostate cancer Z12.5 Gynecomastia N62 Breast pain N64.4 Tinnitus H93.19 Screening for colon cancer Z12.11 Low HDL (under 40) E78.6 Adult general medical exam Z00.00 Additional Codes ROSIO-7 Assessment Billing - ROSIO-7 Assessment Tool: ROSIO-7 Assessment 13293 ([id number]) PHQ-9 - 54073 - PHQ-9 Billing: Yes ([id number]) Assessment & Plan Assessment & Plan (1) Elevated fasting glucose: Code(s): R73.01 - Impaired fasting glucose Category: Medical Plan: Mildly?elevated?fasting?blood?sugar Will?repeat?with?next?blood?draw?as?well?as?A1c (2) Hyperlipidemia: Code(s): E78.5 - Hyperlipidemia, unspecified Category: Medical Plan: Triglycerides?are?elevated?likely?secondary?to?elevated?fasting?blood?sugar Advised?weight?loss Will?monitor LDL?cholesterol?is?controlled?with?atorvastatin HDL?is?low?and?we?are?monitoring?this.??I?advised?increased?exercise (3) Elevated liver enzymes: Code(s): R74.8 - Abnormal levels of other serum enzymes Category: Medical Plan: ALT?mildly?elevated Likely?secondary?to?weight?gain Will?repeat?in?2?months.??I?advised?weight?loss?and?good?hydration (4) Screening for prostate cancer: Code(s): Z12.5 - Encounter for screening for malignant neoplasm of prostate Category: Medical Plan: PSA?was?within?normal?range.??Will?continue?annual?screening (5) Gynecomastia: Code(s): N62 - Hypertrophy of breast Category: Medical Plan: Mild?gynecomastia?and?pain?at?left?breast Check?labs Check?mammogram (6) Breast pain: Code(s): N64.4 - Mastodynia Category: Medical Plan: As?above (7) Tinnitus: Code(s): H93.19 - Tinnitus, unspecified ear Category: Medical Plan: Bilateral?tinnitus Audiology?testing?ordered (8) Screening for colon cancer: Code(s): Z12.11 - Encounter for screening for malignant neoplasm of colon Category: Medical Plan: Cologuard?was?normal?in?May. Will?be?due?to?rescreen?in?3?years (9) Low HDL (under 40): Code(s): E78.6 - Lipoprotein deficiency Category: Medical Plan: Increase?exercise (10) Adult general medical exam: Code(s): Z00.00 - Encounter for general adult medical examination without abnormal findings Category: Medical Plan: 64-year-old?male?presents?for?an?extended?exam Encouraged?healthy?diet?with?active?lifestyle?and?plenty?of?exercise Orders: Orders Comprehensive [place]. Panel Fast Today E78.5 - Hyperlipidemia, unspecified, Z00.00 - Encounter for general adult medical examination without abnormal findings Prolactin Today N62 - Hypertrophy of breast TSH reflex Free T4 Today N62 - Hypertrophy of breast, Z00.00 - Encounter for general adult medical examination without abnormal findings Comprehensive Met. Panel Today N62 - Hypertrophy of breast Testosterone, Free/Total Today N62 - Hypertrophy of breast Estradiol Ultra Sensitive Today N62 - Hypertrophy of breast Lutenizing Hormone Today N62 - Hypertrophy of breast Follicle Stimulating Hormone Today N62 - Hypertrophy of breast MM diagnostic mammo BI Today N62 - Hypertrophy of breast, N64.4 - Mastodynia Comprehensive [place]. Panel Fast 6 Weeks R74.8 - Abnormal levels of other serum enzymes, Z00.00 - Encounter for general adult medical examination without abnormal findings Hemoglobin A1c 6 Weeks R73.01 - Impaired fasting glucose Lipid Panel 6 Weeks E78.6 - Lipoprotein deficiency, Z00.00 - Encounter for general adult medical examination without abnormal findings Referrals Audiology Referral H93.19 - Tinnitus, unspecified ear
[2024-08-03 09:00] VITALS: BP 110/70; PULSE 95; RESP 14; TEMP 36.7; O2SAT 71; BMI 31.7
== END 2024-08-03 09:37 | disposition home or self-care (01) ==
LOC: HO.HMCFM 08:48
PROVIDERS: PCP Family Medicine; Visit Provider Family Medicine
DX: R73.01 Impaired fasting glucose (principal); E78.5 Hyperlipidemia, unspecified; R74.8 Abnormal levels of other serum enzymes; Z12.5 Encounter for screening for malignant neoplasm of prostate; N62 Hypertrophy of breast; N64.4 Mastodynia; H93.19 Tinnitus, unspecified ear; Z12.11 Encounter for screening for malignant neoplasm of colon; E78.6 Lipoprotein deficiency; Z00.00 Encounter for general adult medical examination without abnormal findings

== ENCOUNTER → 2024-08-03 08:47 | Outpatient (BNVA) | payer MEDICARE, SELFPAY | PROVIDERS: PCP Family Medicine; Visit Provider Family Medicine | DX: Z13.89 Encounter for screening for other disorder (principal) | CPT/HCPCS: 96127; 99212 ==

== ENCOUNTER 2024-08-03 09:51 | Outpatient (REF) | payer MEDICARE, SELFPAY ==
[2024-08-03 12:27] LABS: Alanine Aminotransferase 39 U/L (0-40); Albumin Level 4.5 g/dL (3.5-5.0); Alkaline Phosphatase 99 U/L (39-117); Anion Gap 12 (12-20); Aspartate Amino Transferase 28 U/L (5-37); Bilirubin Total 1.1 mg/dL (0.0-1.0); Blood Urea Nitrogen 15 mg/dL (9-16); Calcium 9.7 mg/dL (8.4-10.2); Carbon Dioxide 27 mmol/L (22-29); Chloride 106 mmol/L (96-108); Estimated Glomerular Filt Rate > 60; Glucose Fasting 103 mg/dL (60-99); Glucose Random 103 mg/dL (60-115); Potassium 4.4 mmol/L (3.3-5.1); Sodium 141 mmol/L (135-145); Total Protein 7.2 g/dL (6.5-8.0)
[2024-08-03 12:44] LABS: TSH reflex Free T4 1.56 uIU/mL (0.32-4.0)
[2024-08-04 07:09] LABS: Follicle Stimulating Hormone 2.7 mIU/mL (1.4-12.8); Lutenizing Hormone 3.8 mIU/mL (1.6-15.2); Prolactin 6.7 ng/mL (2.0-18.0)
[2024-08-07 21:33] LABS: Testosterone, Free 41.5 pg/mL (35.0-155.0); Testosterone, Total 352 ng/dL (250-1100)
[2024-08-15 03:03] LABS: Estradiol Ultra Sensitive 28 pg/mL (< OR = 29)
== END 2024-08-03 09:52 | disposition home or self-care (01) ==
LOC: HO.WFDLDS 09:51
PROVIDERS: Visit Provider Family Medicine
DX: Z00.00 Encounter for general adult medical examination without abnormal findings (principal); R73.01 Impaired fasting glucose; E78.5 Hyperlipidemia, unspecified; R74.8 Abnormal levels of other serum enzymes; N62 Hypertrophy of breast; N64.4 Mastodynia; H93.13 Tinnitus, bilateral; E78.6 Lipoprotein deficiency; Z79.899 Other long term (current) drug therapy; Z13.31 Encounter for screening for depression; Z13.30 Encounter for screening examination for mental health and behavioral disorders, unspecified
CPT/HCPCS: 36415; 80053; 82670; 83001; 83002; 84146; 84402; 84403; 84443; 96127; 99212

== ENCOUNTER 2024-09-11 07:51 | Outpatient (REF) | payer MEDICARE, SELFPAY | END 2024-09-11 07:52 | disposition home or self-care (01) | LOC: HO.SH 07:51 | PROVIDERS: Visit Provider Family Medicine | DX: Z01.118 Encounter for examination of ears and hearing with other abnormal findings (principal); H90.3 Sensorineural hearing loss, bilateral; H93.13 Tinnitus, bilateral | CPT/HCPCS: 92557; 92567 ==

== ENCOUNTER 2024-09-26 12:19 | Outpatient (REF) | payer MEDICARE, SELFPAY ==
--- NOTE | ~2024-09-26 | MM_ITS ---
EXAMINATION: MM DIAGNOSTIC DIGITAL BREAST TOMOSYNTHESIS, BILATERAL CLINICAL INFORMATION: Left breast pain, gynecomastia. COMPARISON: None. This is a baseline study. TECHNIQUE: Digital breast tomosynthesis is performed in both the craniocaudal and mediolateral oblique views along with computer-aided detection (CAD). Synthesized 2D images are generated from the tomosynthesis. FINDINGS: BILATERAL BREASTS: Retroareolar density in bilateral breasts, left greater than right, is typical for gynecomastia. No significant masses, suspicious calcifications or other abnormalities are seen in either breast. MM/MM tomosynthesis diagnostic BI IMPRESSION: BILATERAL BREASTS: Findings typical for gynecomastia, left greater than right. Benign, no mammographic evidence of malignancy. Clinical follow-up is recommended. If clinical concern persists, recommend surgical consult. ASSESSMENT: BI-RADS 2 - Benign Findings RECOMMENDATION: Clinical follow up. Results were provided to the patient at time of visit by the technologist. Electronically signed by: Jaime Kenney MD 09/26/2024 01:00 PM EDT
== END 2024-09-26 12:20 | disposition home or self-care (01) ==
LOC: HO.MAMMO 12:19
PROVIDERS: PCP Family Medicine; Visit Provider Family Medicine
DX: N64.4 Mastodynia (principal); N62 Hypertrophy of breast
CPT/HCPCS: 77062; 77066

== ENCOUNTER → 2024-09-26 12:30 | Outpatient (BNV) | payer MEDICARE, SELFPAY | PROVIDERS: PCP Family Medicine; Visit Provider Radiology Body Imaging | DX: N62 Hypertrophy of breast (principal); N64.4 Mastodynia | CPT/HCPCS: 77066; G0279 ==

== ENCOUNTER 2024-10-02 09:18 | Outpatient (REF) | payer MEDICARE, SELFPAY ==
[2024-10-02 12:05] LABS: Hemoglobin A1C 136.4066 umol/L; Total Hemoglobin (HGBA1C) 3706.0166 umol/L
[2024-10-02 12:09] LABS: Alanine Aminotransferase 37 U/L (0-40); Albumin Level 4.4 g/dL (3.5-5.0); Alkaline Phosphatase 95 U/L (39-117); Anion Gap 11 (12-20); Aspartate Amino Transferase 30 U/L (5-37); Blood Urea Nitrogen 13 mg/dL (9-16); Calcium 9.0 mg/dL (8.4-10.2); Carbon Dioxide 26 mmol/L (22-29); Chloride 108 mmol/L (96-108); Cholesterol 105 mg/dL (<200); Estimated Glomerular Filt Rate > 60; HDL Cholesterol 32 mg/dL (>40); Potassium 4.0 mmol/L (3.3-5.1); Sodium 141 mmol/L (135-145); Total Protein 7.0 g/dL (6.5-8.0); Triglycerides 82 mg/dL (<150)
== END 2024-10-02 09:19 | disposition home or self-care (01) ==
LOC: HO.WFDLDS 09:18
PROVIDERS: Visit Provider Family Medicine
DX: E78.6 Lipoprotein deficiency (principal); R74.8 Abnormal levels of other serum enzymes; R73.01 Impaired fasting glucose; Z00.00 Encounter for general adult medical examination without abnormal findings
CPT/HCPCS: 36415; 80053; 80061; 83036

== ENCOUNTER 2024-10-05 10:39 | Outpatient (AMB) | payer MEDICARE, SELFPAY ==
--- NOTE | 2024-10-05 10:48 | MHC.PC.OV ---
Vital Signs 10/05/24 10:51 Height 5 ft 2 in Weight 155 lb 4 oz BMI 28.4 BP 122/84 Blood Pressure Location Lt brachial Position Sitting Respiration 14 Pulse 63 Pulse Source Pulse Oximeter Temp 98.2 F Temp Source Temporal Artery Scan Pulse Oximetry (%) 97 Oxygen Delivery Method Room Air Intake Visit Reasons: marino liver enzymes, fasting sugar/triglycerides Intake Note: Isidoro presents in the office today for results to his labs. Allergies Seasonale Adverse Reaction (Severe, Uncoded 10/05/24 10:50) Watery Eye Tobacco use date assessed: 10/05/24 Dental Screening Dental Screen Date: 10/05/24 Did you have a dental visit in the last 12 months?: Yes Did you have a dental problem in the last 6 months where you did not have access to dental care?: No Was dental information given to patient?: Patient has dentist HPI marino liver enzymes, fasting sugar/triglycerides HPI Details 64 y/o male presents to f/u labs. Labs drawn 10/02/24. Reviewed labs with pt. A1c 5.5%. Liver enzymes are fine - AST 30 and ALT 37. Triglycerides 82. TC 105. LDL 57. HDL low at 32. [facility] Surgical History No pertinent past surgical history Family History Other Substance use disorder Social History (Updated 10/05/24 @ 10:51 by Janina Denis MA) Housing: House Alcohol intake: never Patient Tobacco Use Status: Never used Tobacco e-Cigarette/Vaping Use: Never Used Second Hand Smoke Exposure: No Use of substances other than those prescribed or required for medical reasons: No service: No Current occupational status: employed Current occupation: Portable toilet cleaning Current occupational exposures/hazards: No Cognitive needs: No Hearing needs: No Vision needs: Yes Questionnaire Thrive Questionnaire Date Thrive assessed: 08/02/24 I am a: Patient What is your living situation today?: I have a steady place to live Within the past 12 months, did the food you bought not last and you didn't have the money to get more?: Never true Within the past 12 months, did you worry whether your food would run out before you got money to buy more?: Never true Do you have trouble paying for medicines?: No Do you have trouble getting transportation to medical appointments?: No Do you have trouble paying your heating and electricity bill?: No Do you have trouble taking care of your child, family member or friend?: No Do you have trouble with day-to-day activities such as bathing, preparing meals, shopping, managing finances, etc.?: No Are you currently unemployed and looking for a job?: No Are you interested in more education?: No Please select the resources that you would like help with: None Currently or been in a relationship where the following occur: No concerns reported THRIVE Score: 0 AUDIT C Alcohol Use Questionnaire (AUDIT-C) 3. How often do you have six or more drinks on one occasion?: Never Total Score: 0 ROSIO-7 AMB Questionnaire ROSIO-7 Date ROSIO - 7 assessed: 08/03/24 Source: Developed by Drs. Zay Chow, Shirley Chaidez, Octavio Sam and colleagues, with an educational alexandru from [employer]. Review of Systems Const Denies chills, Denies fatigue, Denies fever(s), Denies headache(s) and Denies weakness ENT Denies dizziness and Denies headache(s) Card Denies chest pain, Denies lightheadedness, Denies dyspnea and Denies other (Palpitations) Resp Denies cough, Denies dyspnea, Denies wheezing and Denies other ( shortness of breath) Musc Denies numbness and Denies tingling Neuro Denies dizziness, Denies headache(s), Denies numbness, Denies tingling, Denies paresthesias and Denies weakness Psych Denies anxiety and Denies depression Endo Denies fatigue Aller/Immun Denies wheezing Physical exam (Primary Care) Vital Signs: Last Vital Signs Temp 98.2 F 10/05/24 10:51 Pulse 63 10/05/24 10:51 Resp 14 10/05/24 10:51 BP 122/84 10/05/24 10:51 Pulse Ox 97 10/05/24 10:51 Oxygen Delivery Method Room Air 10/05/24 10:51 BMI result Body Mass Index 28.4 Tobacco/Smoking Status: Tobacco use Status Tobacco use date assessed 10/05/24 10/05/24 10:54 Patient Tobacco Use Status Never used Tobacco 10/05/24 10:51 e-Cigarette/Vaping Use Never Used 10/05/24 10:51 Thrive Assessment: Date of Thrive Assessment Date Thrive assessed 08/02/24 10/05/24 10:49 Currently or been in a relationship where the following occur: No concerns reported Const General: no acute distress and well developed Nutritional Appearance: well nourished Orientation/consciousness: patient oriented x3 HENMT Head: Yes normocephalic and Yes atraumatic Eyes General: appearance normal, both eyes and all related structures Pupils: Equal, round and reactive pupils present EOM: EOMs intact bilaterally Resp Effort & Inspection: normal respiratory effort Auscultation: clear to auscultation bilaterally Cardio Rate: regular rate Rhythm: regular rhythm Heart sounds: S1 normal heart sound present, S2 normal heart sound present, no gallops, no murmurs and no rubs Neuro General: patient oriented x3 and gait normal Cranial nerves: Yes Equal, round and reactive pupils present Psych Affect: normal affect Coding Level of Care Code Est Pt Level 5 (69654) Diagnoses Elevated liver enzymes R74.8 Hyperlipidemia E78.5 Low HDL (under 40) E78.6 Tinnitus H93.19 Breast pain N64.4 Assessment & Plan Assessment & Plan (1) Elevated liver enzymes: Code(s): R74.8 - Abnormal levels of other serum enzymes Category: Medical Plan: Patient has lost about 18 lb and liver enzymes are within normal range Encouraged weight control. Encouraged hydration (2) Hyperlipidemia: Code(s): E78.5 - Hyperlipidemia, unspecified Category: Medical Plan: LDL cholesterol is well controlled on atorvastatin. HDL is still low and he is working on regular exercise (3) Low HDL (under 40): Code(s): E78.6 - Lipoprotein deficiency Category: Medical Plan: As above (4) Tinnitus: Code(s): H93.19 - Tinnitus, unspecified ear Category: Medical Plan: Bilateral high-frequency drop off on audiogram No recommendation for amplification at this time His audiogram serve as a baseline and they recommended follow-up in a year (5) Breast pain: Code(s): N64.4 - Mastodynia Category: Medical Plan: Patient has lost about 18 lb. Mastodynia has resolved. His lab work was unremarkable Mammogram unremarkable, did show some gynecomastia Maintain weight and encouraged a little more weight loss He will let me know if he has any further problems. Would consider referral to endocrinology. Plan He has an appointment scheduled in August for his complete physical. Orders: Orders Lipid Panel Today Z00.00 - Encounter for general adult medical examination without abnormal findings Microalbumin, Random (w Creat) Today I10 - Essential (primary) hypertension Comprehensive [place]. Panel Fast Today Z00.00 - Encounter for general adult medical examination without abnormal findings Complete Blood Count Auto Diff Today Z00.00 - Encounter for general adult medical examination without abnormal findings Prostate Specific Antigen Scr Today Z12.5 - Encounter for screening for malignant neoplasm of prostate UA CC w/rflx Micro + Cult Today Z00.00 - Encounter for general adult medical examination without abnormal findings TSH reflex Free T4 Today Z00.00 - Encounter for general adult medical examination without abnormal findings
[2024-10-05 10:51] VITALS: BP 122/84; PULSE 63; RESP 14; TEMP 36.8; O2SAT 97; BMI 28.4
== END 2024-10-05 11:45 | disposition home or self-care (01) ==
LOC: HO.HMCFM 10:40
PROVIDERS: PCP Family Medicine; Visit Provider Family Medicine
DX: R74.8 Abnormal levels of other serum enzymes (principal); E78.5 Hyperlipidemia, unspecified; E78.6 Lipoprotein deficiency; H93.13 Tinnitus, bilateral; N64.4 Mastodynia

== ENCOUNTER → 2024-10-05 10:39 | Outpatient (BNVA) | payer MEDICARE, SELFPAY | PROVIDERS: PCP Family Medicine; Visit Provider Family Medicine | DX: R74.8 Abnormal levels of other serum enzymes (principal); E78.5 Hyperlipidemia, unspecified; E78.6 Lipoprotein deficiency; N64.4 Mastodynia; H93.19 Tinnitus, unspecified ear | CPT/HCPCS: 99212 ==